=== PATIENT | male | born 1955 | race Caucasian/White ===

== ENCOUNTER 2025-02-09 16:15 | Emergency (ER) | payer OTHER, SELFPAY ==
--- OUTSIDE RECORDS SUMMARY | 2024-12-08 10:30 | XMS_ITS ---
Author Name [facility] [place] [facility] [place] Address [address] [place] [address] Care Team Providers Care Digestion Operator Name Role Phone ODIN REYNA Primary Care Provider Unavail able Insurance Providers: All historical and current Section Date Range: From patient's date of to the date document was created. This section includes the names of all active insurance providers for the patient. Insurance Provider Type of Coverage Plan Name Start of Policy Coverage End of Policy Coverage Group Number Member ID Insurance Provider's Telephone Number Policy Esteban's Name Patient's Relationship to Policy Esteban [employer] MENTAL HEALTH [facility]IMBO R [place] [facility] November 25, 2018 [id number] HAO PANDEY PATIENT CIGNA PHARMACY PRESCRIPT ION [place] [facility] November 25, 2018 [id number] HAO PANDEY PATIENT CIGNA-[place] HIGH DEDUCTIBL E HEALTH PLAN W/HEALTH REIMBURSE MENT ARRANGEME NT [place]IM[place] R [place] [facility] November 25, 2018 [id number] HAO PANDEY PATIENT MEDICARE (WNR) MEDICARE (M) PART A Sep 25, 2022 PART A [id number] HAO PANDEY JR PATIENT MEDICARE (WNR) MEDICARE (M) PART A Sep 25, 2022 PART A [id number] [phone] [id number] HAO PANDEY JR PATIENT Selected Encounter This section includes the information on record at [place] for the Encounter. Date/Time Encounter Type Encounter Description Reason Provider Source December 08, 2024 02:30 PM HEARING AID CHECK BINAURAL AUDIOLOGY ICD-10-CM Z46.1 Encounter for fitting and adjustment of hearing aid RINKU GILBERT Encounter Template Text not used by [place] Assessments - Encounter Diagnoses This section includes the primary and secondary diagnoses documented for the Encounter. Date/Time Primary/Secondary Diagnosis Diagnosis Name Provider Source December 08, 2024 02:58 PM PRIMARY Encounter for fitting and adjustment of hearing aid SOHAIL MELÉNDEZ [facility] December 08, 2024 02:58 PM SECONDARY Sensorineural hearing loss, bilateral SOHAIL MELÉNDEZ [facility] Plan of Treatment: Future Appointments (+ 6 months) and Future Tests (+/- 45 days) The Plan of Treatment section includes future care activities for the patient from all [place] treatmentfacilities. This section includes future appointments and future orders which are active, pending or scheduled. Future Appointments This section includes appointments that were scheduled to occur 6 months from the date of the Encounter, up to a maximum of 20 appointments. The data comes from all [place] treatment facilities. Appointment Date/Time Appointment Type Appointme nt Facility Name Jan 05, 2025 11:00 AM AMBULATORY PSYCHIATRY [facility] Jan 19, 2025 01:00 PM AMBULATORY - PSYCHIATRY [facility] Feb 09, 2025 11:30 AM AMBULATORY - PSYCHIATRY [facility] Feb 14, 2025 10:00 AM AMBULATORY PSYCHIATRY [facility] Mar 09, 2025 10:30 AM AMBULATORY - MEDICINE [facility] May 12, 2025 11:00 AM AMBULATORY - PSYCHIATRY [facility] Social History: Smoking Status (Most current) and Tobacco Use (All prior to encounter date) This section includes the most current, and the historical, smoking and tobacco- related health factors from the [place] facility where the Encounter took place. Current Smoking Status This section includes the most current smoking, or tobacco-related health factor, from the [place] facility where the Encounter took place. Date/Time Current Smoking Status Comment Luke ity Feb 03, 2023 07:04 AM VA-TOBACCO NEVER USED [facility] Tobacco Use History This section includes a history of the smoking, or tobacco-related health factors, that were collected on or before the date of the Encounter. The data comes from the [place] facility where the Encounter took place. Date/Time Smoking Status/Tobacco Use Comment F acility Nov 07, 2020 08:45 AM VA-TOBACCO NEVER USED [facility] Advance Directives: All historical and current Section Date Range: From patient's date of to the date document was created. This section includes ALL of a patient's completed or amended [place] Advance and Rescinded Directives. The entries below indicate that a directive exists for the patient, but an actual copy is not included with this document. The data comes from all [place] facilities. Date Advance Directives Provider Source May 28, 2022 ADVANCE DIRECTIVE CHU BROWN IE Encounter Notes: All associated encounter notes This section contains the clinical notes associated to the Encounter. Date/Time Encounter Note(s) Provider Source December 08, 2024 07:06 AM AUDIOLOGY NOTE: LOCAL TITLE: AUDIOLOGY HEALTH SOLUTION ENGINEER STANDARD TITLE: AUDIOLOGY NOTE DATE OF NOTE: DECEMBER 08, 2024@07:06 ENTRY DATE: DECEMBER 08, 2024@07:06:29 AUTHOR: RAN MELÉNDEZ EXP COSIGNER: RINKU GILBERT URGENCY: STATUS: COMPLETED AUDIOLOGY HEALTH SOLUTION ENGINEER Has ADDENDA December 08, 2024 History/Background: [place] was seen for a hearing aid follow up, unaccompanied. The [place] presented today requesting maintenance on his hearing aids. The [place] noted the left hearing aid is on but it is not amplifying. He also bought in his back up hearing aids and stated the right one is not working. Hearing aids: David DHILLON MRICs Serial Numbers: [id number] Battery size: Rechargeable Date Issued: 02/24/2023 AND Hearing aids: David BLANKENSHIP AI RICs Serial Numbers: [id number] Battery size: 312 Date Issued: 05/09/2020 Hearing aid check: Both hearing aids were cleaned and checked. Initial inspection confirmed the left Deb on but very weak. Brushed and suctioned the microphones and the hearing aid sound was improved. Replaced wax guards on the left and right. David Kent- replaced wax guards and rodney covers. Biologic check was good for both. The noticed the improvement in the sound of the left David Boyd. The [place] was given a cleaning brush and advised to brush the microphones daily. The mentioned he is struggling to hear his sister, usually while in the car and around the house. Dr. Gilbert recommended trialing a Remote Microphone and the [place] is interested in trialing one. The would like it mailed directly to him as he is comfortable pairing it to his hearing aids himself. Plan: Upon receipt of the Remote Microphone, it can be shipped directly to the . /leigh MELÉNDEZ [facility] Backboard Notcher Signed: 12/09/2024 13:43 /leigh Harris, CCC-A CHIEF, AUDIOLOGY/DRUG SAFETY ASSISTANT Cosigned: 12/09/2024 15:31 12/14/2024 ADDENDUM STATUS: COMPLETED [employer] Remote Rodney received and certified, mailed to address on file today. /leigh MELÉNDEZ [facility] Backboard Notcher Signed: 12/14/2024 14:31 /leigh Harris, CCC-A CHIEF, AUDIOLOGY/DRUG SAFETY ASSISTANT Cosigned: 12/14/2024 14:47 R[facility]DEZ [facility]
--- NOTE | 2025-02-09 | ECG_ITS ---
Test Reason : SYNCOPE Blood Pressure : */* mmHG Vent. Rate : 53 BPM Atrial Rate : 53 BPM P-R Int : 188 ms QRS Dur : 86 ms QT Int : 464 ms P-R-T Axes : 53 -4 22 degrees QTcB Int : 435 ms Sinus bradycardia Otherwise normal ECG No previous ECGs available Referred By: Generic ED Physician Electronically Signed By: DWAYNE HWANG
--- NOTE | ~2025-02-09 | CT_ITS ---
CLINICAL HISTORY: Syncope CT head without contrast Comparison: None provided. Findings: No intracranial mass, midline shift, hydrocephalus, or acute hemorrhage. There is generalized cerebral volume loss. Mild nonspecific periventricular and subcortical white matter changes are identified, which may be seen in the setting of chronic small vessel ischemic disease. Fluid and secretions are partially visualized at the left maxillary sinus. The bilateral mastoid air cells appear clear. No acute skull fracture. Impression: 1. No acute intracranial abnormality. No acute intracranial hemorrhage. 2. Partial visualization of fluid and secretions at the left maxillary sinus, which may be seen in the setting of acute sinusitis. This document has been electronically signed by: Nii Mcelroy MD on 02/09/2025 22:37:24
[2025-02-09 15:27] VITALS: BP 121/76; PULSE 62; O2SAT 97
[2025-02-09 15:30] VITALS: BP 128/83; PULSE 62; RESP 16; TEMP 36.6; O2SAT 96; BMI 26.2
--- OUTSIDE RECORDS SUMMARY | 2025-02-09 16:29 | XMS_ITS | Encounter Summary ---
Author Organization [facility] Address [address] [place] [address] Care Team Providers Care Fill Manager Name Role Phone Pcp, No Primary Care Provider Unavailabl e [facility] Primary Care Provider [phone] Encounter Details Date Type Department Care Team (Late st Contact Info) Description 11/24/2023 [facility] MEDICINE SVC [address] [place] [id number] Rafael Fair MD [address] [facility]. [address] [place] [id number] Social History Tobacco Use Types Packs/Day Years Used Date Smoking Tobacco: Never Smokeless Tobacco: Never Alcohol Use Standard Drinks/Week Comments Not Currently 0 (1 standard drink = 0.6 oz pur e alcohol) Sex and Gender Information Value Date Recorded Sex Assigned at Male 11/23/2023 5:00 PM EDT Legal Sex Male 4:15 PM EDT Gender Identity Male 11/23/2023 5:00 PM EDT Sexual Orientation Choose not to disclose 2023 5:00 PM EDT documented as of this encounter Plan of Treatment Not on file documented as of this encounter Visit Diagnoses Not on filedocumented in this encounter Care Teams Fill Manager Relationship Specialty Start Date End Date Pcp, No PCP - General General Medicine 11/23/23 06/15/24 [facility] [address] [place] [address] PCP - General 06/16/24 documented as of this encounter
--- OUTSIDE RECORDS SUMMARY | 2025-02-09 16:29 | XMS_ITS | Clinical Summary ---
Author Organization [facility] Address [address] [place] [address] Care Team Providers Care Plastic Straightening Roll Operator Name Role Phone Patient, Has No Pcp Or Ref Primary Care Provider Unavailable Allergies Active Allergy Reactions Criticality Noted Date Comments Imipramine Hcl Rash 05/19/2017 Medications azithromycin (ZITHROMAX) 500 mg tablet Take 1 tablet (500 mg total) by mouth once a day. 3 tablet 02/13/2023 Active AMLODIPINE BESYLATE, BULK, MISC 5 mg by oral/entera l tube route once a day. Active atorvastatin (Lipitor) 80 mg tablet Take 80 mg by mouth once a day. Active buPROPion SR (WELLBUTRIN SR) 200 mg tablet Take 200 mg by mouth 2 times a day. Active sertraline (ZOLOFT) 100 mg tablet Take 200 mg by mouth once a day. Active Active Problems Problem Noted Date Diagnosed Date Knee pain 02/13/2023 Post-traumatic stress disorder, unspecified 01/26 Sleep apnea, unspecified 02/13/2023 Immunizations Immunization Administration Dates Next Due Covid-19 Vaccine, J&J, Vecto r-nr, Rs-ad26, PF, 0.5 mL 10/10/2020 Diphtheria, Tetanus Toxoids and Acellular Pertussis Vaccine, Unspecified Formulation 06/13/2011 Influenza, Injectable, Quadr ivalent, Preservative Free 06/18/2022,04/18/2021,04/25/2020 Pneumococcal Polysaccharide Vaccine, 23 Valent 07/31/2015 Tetanus Toxoid, Reduced Diph theria Toxoid, and Acellular Pertussis Vaccine, Adsorbed 04/22/2018 Zoster Vaccine Recombinant 01/11/2020,10/05/2019 Social History Tobacco Use Types Packs/Day Years Used Date Smoking Tobacco: Never Assessed Sex and Gender Information Value Date Recorded Sex Assigned at Male 02/13/2023 12:55 AM EDT Legal Sex Male 10:31 AM EDT Gender Identity Male 02/13/2023 12:55 AM EDT Sexual Orientation Straight 02/13/2023 12 :55 AM EDT Plan of Treatment Health Maintenance Due Date Last Done Comments Cologuard 1957 Colon Cancer Screening 1955 Colonoscopy 1957 FOBT / Fit Test 1957 Sigmoidoscopy 1957 Pneumococcal Vaccine: 50+ Years (2 of 2 - PCV) 07/31/2016 07/31/2015 COVID-19 Vaccine (4 - season) 2024 08/20/2022, 06/09/2021, 10/10/2020 Alcohol/Substance Use Screening 07/28/2024 Health Care Proxy Review 07/28/2024 Influenza Vaccine (#1) 2025 2, 04/18/2021, 04/25/2020, Additional history exists DTaP,Tdap,and Td Vaccines (3 - Td or Tdap) 04/22/2028 04/22/2018, 06/13/2011, 11/25/1998 RSV Vaccine (60+ years old and patients) (1 - 1-dose 75+ series) 2032 Zoster Vaccines Completed 01/11/2020, 10/05/2019 Hepatitis B Vaccines Aged Out No long er eligible based on patient's age to complete this topic Insurance [employer] Care Teams Plastic Straightening Roll Operator Relationship Specialty Start Date End Date Patient, Has No Pcp Or Ref DO NOT EDIT THIS RECORD VIA PROVIDER ON THE FLY PCP - General Physical Therapy Manager 01/20/23
--- OUTSIDE RECORDS SUMMARY | 2025-02-09 16:29 | XMS_ITS ---
Author Name [facility] Organization Unknown History of Medication Use Medication Directions Dispensed Refills Start Date End Date Stat us naproxen (NAPROSYN) 500 MG tablet Take 1 tablet (500 mg total) by mouth 2 times daily (every 12 hours) as needed for mild pain (pain). Take with meals or food to reduce stomach upset. 06/16/2024 07/15/2024 active losartan (COZAAR) 50 MG tablet Take 1 tablet (50 mg total) by mouth daily. 11/24/2023 active buPROPion (WELLBUTRIN SR) 200 MG 12 hr tablet Take 1 tablet (200 mg total) by mouth daily. 07/25/2023 active atorvastatin (LIPITOR) 80 MG tablet Take 1 tablet (80 mg total) by mouth every evening. 07/24/2023 active Allergies Allergen Reaction Severity Comment Documented Date Source Statu s IMIPRAMINE UNKNOWN/PATIENT AND FAMILY UNABLE TO DEFINE Eruption 11/24/2023 [facility] active Problems Problem Status Onset Date Problem Type Date of Resolution Source Postural dizziness with presyncope active 2023-11-23 ProblemAct [facility] Exertional shortness of breath active 2023-11-23 ProblemAct [facility] Cervical radiculopathy active EncounterDiagnosisAct [facility] Impingement syndrome of right shoulder active EncounterDiagnosisAct H [facility] Encounters Encounter Type Encounter Reason Primary Diagnosis Location Date Ambulatory Radiculopathy, cervical region Radiculopathy, cervical region [facility] 06/16/2024 Ambulatory [facility] 12/01/2023 Observation Shortness of breath Shortness of breath [facility] 11/23/2023 Care Team Organization Name Specialty Phone Email Start Date End [facility] 12/08/2024 [facility] Primary Care 06/16/2024 [facility] 12/02/2023 [facility] 11/24/2023 10/13/2024 [facility] NO PCP Primary Care 11/23/2023 [facility] 11/23/2023
[2025-02-09 18:24] VITALS: BP 130/73; PULSE 48; RESP 15; TEMP 36.8; O2SAT 96
[2025-02-09 19:34] LABS: MANUAL DIFF FLAG NO
[2025-02-09 19:38] LABS: Hematocrit 40.6 % (42.0-52.0); Hemoglobin 14.7 g/dl (14.0-18.0); Imm Gran Abs Auto 0.04 X10*3/uL (0.00-0.03); Imm Gran Pct Auto 0.3 % (0.0-0.4); Lymphocytes Absolute Auto 2.5 X10*3/uL (1.2-4.9); Mean Corpuscular HGB Conc 36.2 g/dl (31.0-36.0); Mean Corpuscular Hemoglobin 32.3 pg (27.0-33.0); Mean Corpuscular Volume 89.2 fL (80.0-98.0); NRBC Abs Auto 0.000 X10*3/uL (0.0-0.012); NRBC Pct Auto 0.0 /100WBC (0.0-0.2); Platelet Count 337 X10*3/uL (160-400); Red Blood Count 4.55 X10*6/uL (4.60-5.80); White Blood Count 13.5 X10*3/uL (4.8-10.8)
[2025-02-09 19:50] LABS: Alanine Aminotransferase 33 U/L (0-40); Albumin Level 4.4 g/dL (3.5-5.0); Alkaline Phosphatase 102 U/L (39-117); Anion Gap 13 (12-20); Aspartate Amino Transferase 38 U/L (5-37); Blood Urea Nitrogen 19 mg/dL (9-16); Calcium 9.2 mg/dL (8.4-10.2); Carbon Dioxide 21 mmol/L (22-29); Chloride 109 mmol/L (96-108); Creatinine Clr Calc Pharmacy 57.2; Estimated Glomerular Filt Rate > 60; Potassium 3.8 mmol/L (3.3-5.1); Sodium 139 mmol/L (135-145); Total Protein 7.5 g/dL (6.5-8.0)
[2025-02-09 19:58] LABS: Troponin-I High Sensitivity 11.7 ng/L (<3.5-35.0)
[2025-02-09 20:28] VITALS: BP 127/72; PULSE 49; RESP 16; TEMP 36.4; O2SAT 96
--- NOTE | 2025-02-09 21:41 | ED_ITS ---
HPI - Syncope General Chief Complaint: Syncope Stated Complaint: syncopal episode Time Seen by Provider: 02/09/25 20:21 Source: patient Mode of arrival: EMS Limitations: no limitations History of Present Illness ED Provider: Perry HUERTA HPI narrative: The patient is a 69-year-old male presenting to the ED reporting a history of depression and anxiety, managed by his physician at the [place]. Patient reports earlier today around 1230 he underwent a new therapy for anxiety requiring electrodes to be placed on both ears with 20 minutes of ultrasonic therapy. The patient reports he initially felt lightheaded and dizzy at the start of therapy however was able to complete the full therapy without additional lightheadedness. The patient reports approximately 2-3 hours later he was helping a friend who recently bought a new house cut up, bag up, and carry bags of cut up rugs out to the trash. Patient reports when returning to the house he began to feel lightheaded and dizzy with associated nausea, leaned over a piece of furniture and subsequently suffered a syncopal episode which was unwitnessed. The patient denies chest pain, shortness of breath, headache or focal neurological deficit prior to the syncope. The patient denies active chest pain, headache, or focal neurologic deficit in the ED. The patient reports he has had previous episodes of near syncope in the setting of over exertion, most recently 1 year ago, however this is the 1st time the patient has suffered true syncope. Related Data Allergies Allergy/AdvReac Type Severity Reaction Status Date / Time No Known Allergies Allergy Verified 02/09/25 15:34 Review of Systems 2 Review of Systems: Yes all other systems are reviewed and are negative PMFSH Social History Social History Advance Directives: No Advance Directives Information Provided: No Do you have a plan to hurt others: No Plan Physical Exam 2 Vital Signs: Vital Signs: Last Vital Signs Temp 97.8 F 02/10/25 01:28 Pulse 52 02/10/25 01:28 Resp 16 02/10/25 01:28 BP 145/82 H 02/10/25 01:28 Pulse Ox 96 02/10/25 01:28 O2 Del Method Room Air 02/10/25 01:28 BMI result Body Mass Index 26.2 CONSTITUTIONAL: The patient appears non-toxic, well nourished and in no acute distress. Vital signs as documented. HEAD: Atraumatic, normocephalic. EYES: EOMs grossly intact, pupils equal, conjunctiva clear, no exudate. ENT: Nares patent, no discharge. Airway patent, no audible stridor, visible mucosa is pink and moist without noted lesions. NECK: Trachea is midline, no obvious masses or gross abnormalities. CHEST: Symmetric movement, normal appearance. LUNGS: LS present and CTAB, no w/r/r. Non-labored work of breathing. CARDIAC: Regular Rhythm, S1/S2 appreciated, no murmurs, rubs or gallops. ABDOMEN: Abdomen soft and non-tender x4 quadrants, no palpable masses or organomegaly. : Deferred. EXTREMITIES: Normal tone, moves all extremities spontaneously without reported pain. No obvious acute injury or deformity noted. NEURO: Alert and oriented x3, CN II-XII appear grossly intact. Cerebellar Functioning grossly intact. No obvious sensory or motor deficits. Speech clear and appropriate. PSYCH: normal affect, appropriate eye contact, fluid speech, with appropriate response to questioning. No reported suicidality or homicidality. SKIN: Warm, dry, color appropriate, normal turgor. No rashes noted. Medications Administered Discontinued Medications Generic Name Dose Route Start Last Admin Trade Name Freq PRN Reason Stop Dose Admin Sodium Chloride 1,000 mls @ 999 mls/hr 02/09/25 22:15 02/10/25 02:05 Ns IV 02/09/25 23:15 Infused .Q1H1M SHELLEY Infusion Medical Decision Making Medical Decision Making [facility] Narrative: 10:14 PM 02/09/2025 (Vannessa HUERTA): The patient is a 69-year-old male presenting to the ED for evaluation of syncopal episode that occurred after exerting himself doing housework. The patient denies prodrome other than dizziness/lightheadedness, denies any chest pain, headache, or focal neurological deficit. The patient arrives to the ED normotensive without tachycardia, hypoxia, or fever. On exam patient is well-appearing, no acute findings. The patient's laboratory evaluation shows no acute anemia, leukocytosis, electrolyte abnormality, or SAVI. The patient is initial troponin is negative, EKG shows mild bradycardia but is nonischemic. The patient is likely suffering from heat exhaustion, we will provide IV fluid hydration, obtain CT head to rule out acute neurologic process, and repeat troponin to ensure no cardiac process. 10:52 PM 02/09/2025 (Vannessa HUERTA): Patient's repeat troponin is negative, CT shows no acute intracranial pathology. The patient will complete IV fluid hydration and we will plan for discharge to follow up with PCP. 2:20 AM 02/10/2025 (Vannessa HUERTA): Patient completed IV fluid hydration, urinalysis has been obtained and is negative for infection or other pathology, the patient was able to ambulate with a steady gait without recurrent dizziness or other complaint. Patient will be discharged to follow up with PCP outpatient. Admission/Observation Consideration of admission/observation: Escalation of care including admission/observation considered Lab Data MDM Lab Attestation statement: I reviewed the patient's lab results. 02/09/25 19:24 02/09/25 19:24 Labs: Lab Results 02/09/25 02/09/25 02/10/25 Range/Units 19:24 22:15 01:33 WBC 13.5 H (4.8-10.8) X10*3/uL RBC 4.55 L (4.60-5.80) X10*6/uL Hgb 14.7 (14.0-18.0) g/dl Hct 40.6 L (42.0-52.0) % MCV 89.2 (80.0-98.0) fL MCH 32.3 (27.0-33.0) pg MCHC 36.2 H (31.0-36.0) g/dl RDW 12.8 (11.0-16.0) % Plt Count 337 (160-400) X10*3/uL MPV 8.7 L (9.4-12.4) fL Immature Gran % (Auto) 0.3 (0.0-0.4) % Neut % (Auto) 74.5 H (45-73) % Lymph % (Auto) 18.9 L (20-40) % Nye % (Auto) 5.3 (2-11) % Eos % (Auto) 0.3 (0-4) % Baso % (Auto) 0.7 (0-2) % Lymph # (Auto) 2.5 (1.2-4.9) X10*3/uL Nye # (Auto) 0.7 (0.1-1.2) X10*3/uL Eos # (Auto) 0.0 (0.0-0.4) X10*3/uL Baso # (Auto) 0.1 (0.0-0.2) X10*3/uL Abs Immat Gran (auto) 0.04 H (0.00-0.03) X10*3/uL Absolute Neuts (auto) 10.1 H (2.0-8.3) x10*3/uL Absolute Nucleated RBC 0.000 (0.0-0.012) X10*3/uL Nucleated RBC % (auto) 0.0 (0.0-0.2) /100WBC Sodium 139 (135-145) mmol/L Potassium 3.8 (3.3-5.1) mmol/L Chloride 109 H (96-108) mmol/L Carbon Dioxide 21 L (22-29) mmol/L Anion Gap 13 (12-20) BUN 19 H (9-16) mg/dL Creatinine 1.13 (0.5-1.4) mg/dL Estim Creat Clear Calc 57.2 Estimated GFR > 60 Random Glucose 110 (60-115) mg/dL Calcium 9.2 (8.4-10.2) mg/dL Total Bilirubin 0.9 (0.0-1.0) mg/dL AST 38 H (5-37) U/L ALT 33 (0-40) U/L Alkaline Phosphatase 102 (39-117) U/L Troponin I High Sens 11.7 2.9 D (<3.5-35.0) ng/L Total Protein 7.5 (6.5-8.0) g/dL Albumin 4.4 (3.5-5.0) g/dL Urine Color Yellow Urine Appearance Clear Urine pH 6.0 (5.0-9.0) Ur Specific Rupert 1.015 (1.005-1.025) Urine Protein Negative (Neg-Trace) mg/dL Urine Glucose (UA) Negative (Negative) mg/dL Urine Ketones Negative (Negative) mg/dL Urine Blood Negative (Negative) Urine Nitrite Negative (Negative) Ur Leukocyte Esterase Negative (Negative) Independent Interpretation I performed an independent interpretation of an: EKG (EKG shows sinus bradycardia with a rate of 53, no evidence of acute ischemia, no ST elevation, no ectopy. QTC 435. ) Radiology Impression Discussion of test interpretation with radiology: I have reviewed the radiologist's reading. Radiologist Impression: CLINICAL HISTORY: Syncope CT head without contrast Comparison: None provided. Findings: No intracranial mass, midline shift, hydrocephalus, or acute hemorrhage. There is generalized cerebral volume loss. Mild nonspecific periventricular and subcortical white matter changes are identified, which may be seen in the setting of chronic small vessel ischemic disease. Fluid and secretions are partially visualized at the left maxillary sinus. The bilateral mastoid air cells appear clear. No acute skull fracture. Impression: 1. No acute intracranial abnormality. No acute intracranial hemorrhage. 2. Partial visualization of fluid and secretions at the left maxillary sinus, which may be seen in the setting of acute sinusitis. This document has been electronically signed by: Nii Mcelroy MD on 02/09/2025 22:37:24 Discharge Plan Discharge Clinical Impression: Dehydration Syncope Qualifiers: Syncope type: heat syncope Encounter type: initial encounter Qualified Code(s): T67.1XXA - Heat syncope, initial encounter Patient Disposition: Home, Self-Care Instructions: Dehydration (ED), Syncope (ED) Additional Instructions: Thank you for choosing [facility] Emergency Department for your care today. Thankfully your EKG, laboratory evaluation, CT and exam today are all reassuring. 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 Is unclear [facility] to your incident contributed to your fainting episode. Please notify your [place] provider of this incident prior to repeating the treatment. At this time there is no evidence of an acute process requiring admission to the hospital or continued ED observation, and it is safe to discharge you home. You may take alternating (staggered) doses of ibuprofen 600mg and Tylenol 1000mg every 4 hours as needed for any pain. Please stay well hydrated and get plenty of rest. Please avoid significant exertional activity while exposed to excessive heat and humidity. Please follow up with your primary care physician for re-evaluation, additional management of your symptoms, and continued preventative care. If you do not have a primary care physician, please call the [facility] at [phone] to establish a new primary care physician. While waiting to establish your new primary care physician, you can call our Walk-in Care Clinic at [phone] for non-emergency needs. Please return to the emergency department if you develop a severe or sudden change in your symptoms, a fever over 100.4 that does not improve with Tylenol or Ibuprofen, recurrent vomiting, or any other new or worsening symptoms or concerns. Referrals: Thelma Browning MD [Primary Care Provider, Internal Medicine] Clinical Impression: Syncope; Dehydration Print Language: Slovak
[2025-02-09 22:15] VITALS: BP 133/76; PULSE 52; RESP 16; TEMP 36.8; O2SAT 96
[2025-02-09 22:45] LABS: Troponin-I High Sensitivity 2.9 ng/L (<3.5-35.0)
[2025-02-10 01:28] VITALS: BP 145/82; PULSE 52; RESP 16; TEMP 36.6; O2SAT 96
[2025-02-10 01:45] LABS: Appearance Urine Clear; Glucose Urine UA Negative (Negative); PH 6.0 (5.0-9.0); Specific Gravity - Urine 1.015 (1.005-1.025)
[2025-02-10 02:26] VITALS: BP 143/79; PULSE 50; RESP 16; TEMP 36.6; O2SAT 96
[2025-02-10 03:00] VITALS: BP 143/79; PULSE 50; RESP 16; TEMP 36.6; O2SAT 96
== END 2025-02-10 03:00 | disposition home or self-care (01) ==
PROVIDERS: Physician Assistant; Emergency Provider Emergency Medicine; PCP Family Medicine
DX: E86.0 Dehydration (principal); R55 Syncope and collapse; R00.1 Bradycardia, unspecified; F41.9 Anxiety disorder, unspecified; R42 Dizziness and giddiness; R11.0 Nausea; Z79.899 Other long term (current) drug therapy
CPT/HCPCS: 36415; 70450; 80053; 81003; 84484; 85025; 93005; 96360; 96361; 99285

== ENCOUNTER → 2025-02-09 19:10 | Outpatient (BNV) | payer OTHER, SELFPAY | PROVIDERS: Emergency Provider Emergency Medicine; PCP Family Medicine; Visit Provider Internal Medicine | DX: R00.1 Bradycardia, unspecified (principal) | CPT/HCPCS: 93010 ==

== ENCOUNTER → 2025-02-09 21:53 | Outpatient (BNV) | payer OTHER, SELFPAY | PROVIDERS: Emergency Provider Emergency Medicine; PCP Family Medicine; Visit Provider Radiology Diagnostic Radiology | DX: R55 Syncope and collapse (principal) | CPT/HCPCS: 70450 ==